=== PATIENT | male | born 1985 | race Caucasian/White ===

== ENCOUNTER 2019-08-27 10:31 | Emergency (ER) | payer OTHER, MEDICAID, SELFPAY ==
[2019-08-27 10:37] VITALS: BP 139/62; PULSE 84; RESP 16; TEMP 38; O2SAT 96
[2019-08-27 12:02] LABS: Lactate 1.4 mmol/L (0.6-1.4)
[2019-08-27 12:08] LABS: Abs Immature Grans 0.15 k/cumm (0.0-0.09); HCT 35.8 % (40.0-50.0); HGB 11.3 g/dL (13.5-17.5); Mean Corp. HGB Concentration 31.6 g/dL (32.0-36.0); Mean Corpuscular Hemoglobin 27.5 pg (27.0-33.0); Mean Corpuscular Volume 87.1 fL (80-95); Platelet Count 107 x1000/uL (130-400); RBC 4.11 m/cumm (4.50-6.00); RBC Distribution Width 14.5 % (11.8-14.1); White Blood Cell Count 10.37 k/cumm (4.4-10.8)
[2019-08-27 12:33] LABS: Absolute Lymphocyte Count 0.62 k/cumm (1.2-3.4); Absolute Monocyte Count 0.31 k/cumm (0.11-0.7); Absolute Neutrophil Count 9.33 k/cumm (1.2-6.7)
[2019-08-27 12:34] LABS: ALT 24 U/L (16-63); AST 32 U/L (15-37); Albumin 2.9 g/dL (3.4-5.0); Alkaline Phosphatase 41 U/L (46-116); Anion Gap 9.3 mmol/L (3-11); BUN 19 mg/dL (7-18); CO2 26.7 mmol/L (21.0-32.0); CREATININE 1.23 mg/dL (0.70-1.30); Calcium 8.2 mg/dL (8.5-10.1); Chloride 97 mmol/L (98-107); Diff Comment Manual Differential; Glucose 96 mg/dL (74-106); RBC Morphology Normal; Sodium 133 mmol/L (136-145)
--- NOTE | 2019-08-27 13:35 | W.ED.GENAD ---
Discharge Plan Disposition Patient Disposition: HOME Condition: Stable Discharge Details Chief Complaint: Cellulitis Clinical Impression: Cellulitis Primary Care Provider: None,None ED Provider: Salima Mayes Home Meds and New Rx's Prescriptions: Continued clonidine HCl 0.1 mg Tablet 0.1 mg PO BID RF: 0 acetaminophen 325 mg Tablet 650 mg PO BID RF: 0 methadone 10 mg/mL Solution 120 mg IM DAILY RF: 0 methylphenidate HCl 10 mg Tablet 10 mg PO BID RF: 0 clindamycin HCl 150 mg Capsule 450 mg PO TID RF: 0 calcipotriene [Dovonex] 0.005 % Cream 1 applic TOPICAL DAILY RF: 0 bupropion HCl 75 mg Tablet 75 mg PO BID RF: 0 Therapeutic Shampoo 0.5 % Shampoo 1 applic TOPICAL DAILY RF: 0 ondansetron 4 mg Tablet,Disintegrating 4 mg PO BID PRNRF: 0 Humira 40 mg/0.8 mL Syringe Kit 40 mg SUBCUT Q2W RF: 0 Eucerin Cream 1 applic TOPICAL DAILY RF: 0 Changed cephalexin 500 mg Capsule 500 mg PO QID Qty: 0 RF: 0 Discharge Instructions Instructions: Cellulitis (ED) Additional Instructions: You refuse admission to the hospital today. You refuse final blood culture to be drawn. If you choose to be admitted to the hospital or you worsen please return immediately for consideration of admission for IV antibiotics as discussed. Continue antibiotics provided. Increase your Keflex to 4 times daily, continue clindamycin. Consider splitting your dose of methadone for better pain relief. This is ultimately up to the provider at the facility. Elevate leg as best possible Return for any worsening, concerns, return of fever, increased redness increased swelling or pain sooner if needed as discussed Medical Decision Making Is a very pleasant 34-year-old patient presenting to the emergency room for complaints of cellulitis of his right lower leg. Patient is immune no compromise due to Humira which he takes for psoriasis control. Patient received his Humira injection 1 week ago. Patient reports in the last 2 days he did have shaking chills with a temperature of 103 noted by medical yesterday. Patient reports he vomited after which fever broke and he has remained 80 febrile in the last 24 hours. Patient denies any shaking chills in the last 24 hours. Patient reports when seen at medical yesterday he was placed on clindamycin 450 mg 3 times daily as well as 500 mg of Keflex twice daily. Patient has been compliant with his medications last 24 hours. Reports improvement in ill feeling as well as improved sensation of swelling in the right leg and some improvement in erythema. Patient comes to the emergency room today for reevaluation at request of medical as he declined transport yesterday. Patient clinically does appear well, vital signs reviewed. Current temperature 100.4. Patient with a very evident cellulitis of the right lower leg below the knee with minimal extension to the medial aspect of the distal thigh. Compared to skin markings erythema is overall unchanged. Patient reports in general he feels better compared to onset of symptoms in the last 1 to 2 days. Given patient's history of Humira use and known immunocompromise due to his medications I have recommended this patient stay in the hospital given the extent of cellulitis to the right lower leg. Patient declines admission to the hospital at this time. Patient is competent to make decisions at this time. Denies use of impairing medications. Patient reports specifically that he does not want to be admitted to the hospital as he is due to be transferred for court date on Thursday and does not want to impede on his ability to make the transfer first court date or delay his court date. I have made this patient aware of the possibility of extensive infection, as well as the possibility of bacteremia given his report of shaking chills and ill feeling and immunocompromise. I recommended the patient be admitted to the hospital again and encouraged him that he would benefit from even a 2-day stay in the hospital and IV antibiotics. Patient again declines. Patient is aware of the risks and benefits of being admitted to the hospital and declining hospital admission. Patient willing to consent to blood work. CBC, lactate, CMP as well as blood cultures ordered. Labs reviewed, lactate normal, initial blood culture was drawn. Lab had difficulty drawing a second blood culture. Patient refuses any additional attempts to obtain the second blood culture after several attempts have been performed, including use with ultrasound. I continue to encourage admission to the hospital and patient continues to decline with a full understanding of risks and benefits. Given patient's preference of discharge at this time I have encouraged that he continues to receive his oral medications however after review of his kidney function and labs I have recommended that the clindamycin be continued 3 times a day however that the Keflex is increased to 4 times daily as opposed to the twice daily dosing which has been previously provided. I spoke with the medical staff at [facility] made aware of my recommendations. They will dose his medication when he returns back. Will provide paperwork appropriate for recommendations of increasing dosing. I have also requested that the patient has medical evaluation daily to follow his infection while at the facility. Patient again offered admission and he continues to decline. We will continue antibiotics orally. Made aware of signs and symptoms for which she should have immediate return. Single blood culture pending results. The patient was stable and requested discharge. Prior to discharge, my usual and customary return precautions were reviewed with the patient - this included follow-up instructions and reasons to return to the Emergency Department if conditions worsens, does not improve as expected, or other new concerns arise. HPI General Date/Time Provider Initiated Documentation: 08/27/19 10:33. HPI Narrative: Is a pleasant 34-year-old patient who is currently incarcerated accompanied by corrections officers for complaints of right lower leg redness. Patient reports 2 days ago he had onset of fever with shaking chills. Patient was evaluated by medical yesterday. Patient evaluated by medical and found to have a right lower leg cellulitis. Patient was advised to go to the hospital at that time but he declined. Patient was started on clindamycin 450 mg 3 times daily as well as Keflex 500 mg twice daily. Patient reports improvement today. No persistence in shaking chills. Patient did report a single episode of vomiting yesterday no persistent nausea, vomiting or bowel changes since that time. Patient reports feeling improved and reporting in provement in lower leg swelling sensation and mild retraction of redness compared to skin markings placed yesterday. Patient is concerned as last week he did receive his Humira injection which he receives for widespread psoriasis for control. Patient comes to the emergency room today for evaluation per medical's recommendation. Patient denies any injury or trauma to the lower leg. Patient does have skin lesions on bilateral knees and right anterior bunch prior to onset of redness. Related Data Home Medications Medication Instructions Recorded Confirmed Eucerin 1 applic TOPICAL DAILY 08/27/19 08/27/19 Humira 40 mg SUBCUT Q2W 08/27/19 08/27/19 Therapeutic Shampoo 1 applic TOPICAL DAILY 08/27/19 08/27/19 acetaminophen 650 mg PO BID 08/27/19 08/27/19 bupropion HCl 75 mg PO BID 08/27/19 08/27/19 calcipotriene [Dovonex] 1 applic TOPICAL DAILY 08/27/19 08/27/19 cephalexin 500 mg PO QID #0 cap 08/27/19 08/27/19 clindamycin HCl 450 mg PO TID 08/27/19 08/27/19 clonidine HCl 0.1 mg PO BID 08/27/19 08/27/19 methadone 120 mg IM DAILY 08/27/19 08/27/19 methylphenidate HCl 10 mg PO BID 08/27/19 08/27/19 ondansetron 4 mg PO BID PRN 08/27/19 08/27/19 Previous Rx's Medication Instructions Recorded cephalexin 500 mg PO QID #0 cap 08/27/19 Allergies Allergy/AdvReac Type Severity Reaction Status Date / Time No Known Allergies Allergy Unverified 08/27/19 10:37 General Stated Complaint: Cellulitis PAO: 3 Review of Systems All systems reviewed & are unremarkable except as noted in HPI and below Constitutional Constitutional: Reports chills (Since resolved), Denies fatigue, Reports fever(s) (Since resolved), Denies headache(s) and Denies malaise ENT Ears, Nose, Mouth, and Throat: Denies headache(s) and Denies neck pain Musculoskeletal Musculoskeletal: Denies abnormal gait, Denies back pain, Denies neck pain and Denies numbness Integumentary/Breasts Skin/Breast: Reports erythema, Reports rash (Psoriasis), Reports skin swelling and Reports wounds (Psoriatic) Neurologic Neurologic: Denies abnormal gait, Denies headache(s) and Denies numbness Endocrine Endocrine: Denies fatigue [facility] Social History Smoking/Tobacco Use Status: Former Tobacco Use Details: on Methadone Exam Narrative Exam Narrative: CONST: Healthy appearing patient, in no acute distress. Well hydrated. Alert and oriented. HENMT: Head nomocephalic, normal to inspection. Atraumatic. Hearing grossly normal. TMs appear normal bilaterally, no pharyngeal erythema. EYES: General normal appearance. Alignment normal. Eyelids normal. Conjunctiva normal. NECK: Normal visual inspection. FROM. Trachea midline. No Midline tenderness. CHEST: Normal insepection of the chest. RESP: Normal respiratory effort. Speaking full sentences. No cough. No audible wheezing. No retractions. Breath sounds clear, full and equal bilaterally. No rhonchi, wheezing or rales CARDIO: No JVD. No murmur. Regular rate and rhythm MUSCULOSKELETAL: Normal Gait. FROM of all extremities. Right leg: Primarily below the knee cellulitis with erythema, swelling and warmth. Well demarcated. There is a small area medial to the knee with proximal extension. Nothing into the groin. No obvious lymphangitis although the small area medial to the knee possibly could be associated with lymphangitis although again not well demarcated in this area. Very vague in the area of the medial distal thigh. No obvious fluctuance. No clear drainage. There is psoriatic lesions on bilateral anterior knees as well as right bunch. No significant foot involvement although mild edema is present in the foot. Pulses intact. Distal neurovascularly intact. Sensation intact. Cap refill normal. No left leg involvement. Mild swelling of the right leg compared to the left. No calf pain with palpation. Erythema of right leg is not circumferential. SKIN: Normal. Dry. No rashes. See above Course Vital Signs Vital signs: Vital Signs Temperature 38 C H 08/27/19 10:37 Pulse 84 08/27/19 10:37 Respiratory Rate 16 08/27/19 10:37 Blood Pressure 139/62 08/27/19 10:37 Pulse Oximetry 96 08/27/19 10:37 Temperature 38 C H 08/27/19 10:37 Temperature Source Oral 08/27/19 10:37 Pulse 84 08/27/19 10:37 Respiratory Rate 16 08/27/19 10:37 Respiratory Effort Non-Labored 08/27/19 10:43 Blood Pressure 139/62 08/27/19 10:37 Pulse Oximetry 96 08/27/19 10:37 Oxygen Delivery Method Room Air 08/27/19 10:37 Oxygen Flow Rate 0 08/27/19 10:37 Pain Level 5 08/27/19 10:37 Lab/Test Results Lab/Test Results: 08/27/19 11:50 Blood Blood Culture - Pending 08/27/19 11:23 Blood Blood Culture - Pending Laboratory Tests Range/Units 08/27/19 08/27/19 08/27/19 11:50 11:50 11:50 WBC (4.4-10.8) k/cumm 10.37 RBC (4.50-6.00) m/cumm 4.11 L Hgb (13.5-17.5) g/dL 11.3 L Hct (40.0-50.0) % 35.8 L MCV (80-95) fL 87.1 MCH (27.0-33.0) pg 27.5 MCHC (32.0-36.0) g/dL 31.6 L RDW (11.8-14.1) % 14.5 H Plt Count (130-400) x1000/uL 107 L MPV (8.0-11.0) fL 10.0 Immature Gran % See Differential Neutrophils % 87.0 Band Neutrophils % % 3.0 Lymphocytes % 6.0 Monocytes % 3.0 Eosinophils % 0.0 Basophils % 0.0 Metamyelocytes % % 0.0 Myelocytes % % 1.0 Absolute Neutrophils (1.2-6.7) k/cumm 9.33 H Absolute Lymphocytes (1.2-3.4) k/cumm 0.62 L Absolute Monocytes (0.11-0.7) k/cumm 0.31 Absolute Eosinophils (0.0-0.7) k/cumm 0.00 Absolute Basophils (0.0-0.2) k/cumm 0.00 Differential Comment Manual differential RBC Morphology Normal Sodium (136-145) mmol/L 133 L Potassium (3.5-5.1) mmol/L 4.0 Chloride (98-107) mmol/L 97 L Carbon Dioxide (21.0-32.0) mmol/L 26.7 Anion Gap (3-11) mmol/L 9.3 BUN (7-18) mg/dL 19 H Creatinine (0.70-1.30) mg/dL 1.23 Estimated GFR/1.73 m2 (mL/min/1.73m2) >= 60.00 Glucose (74-106) mg/dL 96 Lactate (0.6-1.4) mmol/L 1.4 Calcium (8.5-10.1) mg/dL 8.2 L Total Bilirubin (0.2-1.0) mg/dL 1.0 AST (15-37) U/L 32 ALT (16-63) U/L 24 Alkaline Phosphatase (46-116) U/L 41 L Total Protein (6.4-8.2) g/dL 7.0 Albumin (3.4-5.0) g/dL 2.9 L
== END 2019-08-27 12:55 | disposition home or self-care (01) ==
PROVIDERS: Emergency Provider Physician Assistant
DX: L03.115 Cellulitis of right lower limb (principal); R50.9 Fever, unspecified; D84.8 Other specified immunodeficiencies; Z53.29 Procedure and treatment not carried out because of patient's decision for other reasons
CPT/HCPCS: 36415; 80053; 87040; 99283; 83605; 85025